=== PATIENT | male | born 1995 | race Caucasian/White ===

== ENCOUNTER 2019-02-04 06:53 | Emergency (ER) | payer SELFPAY ==
[~2019-02-04] VITALS: Ht 172.7 cm; Wt 68.2 kg
[2019-02-04 07:53] VITALS: BP 122/90
== END 2019-02-04 08:00 | disposition home or self-care (01) ==
LOC: EMS 06:57
DX: Z02.89 Encounter for other administrative examinations (principal); R45.1 Restlessness and agitation; J45.909 Unspecified asthma, uncomplicated